=== PATIENT | female | born 1945 | race Caucasian/White ===

== ENCOUNTER 2017-12-22 22:16 | Emergency (ER) | payer MEDICARE, BC ==
[~2017-12-22] VITALS: Ht 162.6 cm; Wt 72.2 kg
[~2017-12-22 22:16] MED LIST: CORE20CA OR; DIGO0.25 PO; OXYC-360 PO; VITA400C58 OR
[2017-12-22 22:35] VITALS: BP 184/82; PULSE 105; RESP 18; TEMP 98.4; O2SAT 97
--- NOTE | 2017-12-22 23:53 | PD ---
HPI Chief Complaint: Cardiac Complaint Time Seen by Provider: 23:51 Travel History International Travel<30 days: No Contact w/Intl Traveler<30days: No Traveled to known affect area: No History of Present Illness HPI The patient is a 72-year-old female that complains of heart palpitations since 10 PM tonight. She does have a history of PAT. The heart palpitations are apparently felt as single beats. She denies any chest pain, shortness of breath , syncopal or near syncopal spells or headache. She did have a sore throat yesterday but this is gone today. She does have occasional right ear pain. PFSH Past Medical History Cardiovascular Problems: Yes Social History Tobacco Use: No Allergies-Medications (Allergen,Severity, Reaction): Coded Allergies: No Known Allergies (Unverified , 12/22/17) Reported Meds & Prescriptions Reported Meds & Active Scripts Active Reported Aspirin 81 Mg Chew 81 Mg CHEW DAILY Ranitidine (Ranitidine HCl) 150 Mg Tab 150 Mg PO BID Carbidopa-Levodopa 25-100 Mg Tab 1 Tab PO Q8HR Atenolol 100 Mg Tab 100 Mg PO DAILY Review of Systems Except as stated in HPI: all other systems reviewed are Neg Physical Exam Narrative GENERAL: Well-nourished, well-developed patient in no apparent distress. Her vital signs show blood pressure 184/82 with heart rate of 105 but otherwise normal. The patient appears slightly anxious. SKIN: Focused skin assessment warm/dry. No skin rash is seen. HEAD: Normocephalic. EYES: No scleral icterus. No injection or drainage. NECK: Supple, trachea midline. No JVD or lymphadenopathy. CARDIOVASCULAR: Regular rate and rhythm without murmurs, gallops, or rubs. RESPIRATORY: Breath sounds equal bilaterally. No accessory muscle use. Lungs clear to auscultation bilaterally GASTROINTESTINAL: Abdomen soft, non-tender, nondistended. MUSCULOSKELETAL: No cyanosis, or edema. BACK: Nontender without obvious deformity. No CVA tenderness. ENT: The tympanic membranes are clear and the throat is clear without erythema, exudate or abscess. Data Data Last Documented VS Vital Signs Date Time Temp Pulse Resp B/P (MAP) Pulse Ox O2 Delivery O2 Flow Rate FiO2 12/23/17 01:58 98.5 95 18 144/87 (106) 98 Room Air Orders Orders Electrocardiogram (12/22/17 23:26) Complete Blood Count With Diff (12/22/17 23:26) Basic Metabolic Panel (Bmp) (12/22/17 23:26) Ckmb (Isoenzyme) Profile (12/22/17:) Troponin I (12/22/17 23:) Ed Discharge Order (12/23/17 02:10) Labs Laboratory Tests Test 12/22/17 23:30 White Blood Count 7.6 TH/MM3 Red Blood Count 5.22 MIL/MM3 Hemoglobin 16.4 GM/DL Hematocrit 46.9 % Mean Corpuscular Volume 89.8 FL Mean Corpuscular Hemoglobin 31.5 PG Mean Corpuscular Hemoglobin Concent 35.1 % Red Cell Distribution Width 13.3 % Platelet Count 276 TH/MM3 Mean Platelet Volume 9.2 FL Neutrophils (%) (Auto) 59.0 % Lymphocytes (%) (Auto) 31.7 % Monocytes (%) (Auto) 8.2 % Eosinophils (%) (Auto) 0.8 % Basophils (%) (Auto) 0.3 % Neutrophils # (Auto) 4.5 TH/MM3 Lymphocytes # (Auto) 2.4 TH/MM3 Monocytes # (Auto) 0.6 TH/MM3 Eosinophils # (Auto) 0.1 TH/MM3 Basophils # (Auto) 0.0 TH/MM3 CBC Comment DIFF FINAL Differential Comment Blood Urea Nitrogen 12 MG/DL Creatinine 0.77 MG/DL Random Glucose 128 MG/DL Calcium Level 9.6 MG/DL Sodium Level 138 MEQ/L Potassium Level 3.0 MEQ/L Chloride Level 103 MEQ/L Carbon Dioxide Level 27.8 MEQ/L Anion Gap 7 MEQ/L Estimat Glomerular Filtration Rate 74 ML/MIN Total Creatine Kinase 80 U/L Troponin I LESS THAN 0.02 NG/ML MDM Medical Decision Making Medical Screen Exam Complete: Yes Emergency Medical Condition: Yes Medical Record Reviewed: Yes Interpretation(s) The EKG is normal except for a sinus tachycardia with a rate of 100 and occasional PVC. The basic metabolic profile shows a GFR of 74 and potassium 3.0 but is otherwise unremarkable. The CBC shows a hemoglobin of 16 and hematocrit of 47. Differential Diagnosis Electrolyte disorder, anxiety, sleep loss, ingestion of cardiac stimulants, acute cardiac syndrome-highly unlikely, dehydration Narrative Course The patient has a slight hypokalemia. She'll be given potassium supplement. It is now 2:00 in the morning and the heart rate is in the upper 80s and no PVCs are seen. The patient may have been dehydrated, I cannot get a history of cardiac stimulants such as tea, decongestants or coffee in excess. The patient will get potassium supplement once daily over a month. She should increase her liquid intake. She has apparent hemoconcentration and this may be dehydration. Diagnosis Primary Impression: PVCs (premature ventricular contractions) Additional Impressions: Hypokalemia Mild dehydration Additional Instructions: As we discussed, increase her liquid intake. Fruit juices, fruits and vegetables and root products such as potatoes have potassium. The potassium pills one pill daily for one month. Med/Other Pt SpecificInfo: Prescription(s) given Scripts Potassium Chloride ER (K-Tab) 10 Meq Tab 10 MEQ PO DAILY for Electrolyte Replacement, #30 TAB 0 Refills Prov: Bird Obregon MD 12/23/17 Disposition: 01 DISCHARGE HOME Condition: Stable Bird Obregon MD Dec 22, 2017 23:53
[2017-12-23 00:35] LABS: AUTOMATED NEUTROPHIL # 4.5 TH/MM3 (1.8-7.7); BASOPHIL % 0.3 % (0.0-2.0); EOSINOPHIL # 0.1 TH/MM3 (0-0.4); EOSINOPHIL % 0.8 % (0.0-4.0); HEMATOCRIT 46.9 % (35.0-46.0); HEMOGLOBIN 16.4 GM/DL (11.6-15.3); LYMPH % 31.7 % (9.0-44.0); LYMPHOCYTE # 2.4 TH/MM3 (1.0-4.8); MEAN CELL VOLUME 89.8 FL (80.0-100.0); MEAN CORPUSCULAR HEMOGLOBIN 31.5 PG (27.0-34.0); MEAN CORPUSCULAR HGB CONC 35.1 % (32.0-36.0); MEAN PLATELET VOLUME 9.2 FL (7.0-11.0); MONO % 8.2 % (0.0-8.0); MONOCYTE # 0.6 TH/MM3 (0-0.9); PLATELET COUNT 276 TH/MM3 (150-450); RED BLOOD COUNT 5.22 MIL/MM3 (4.00-5.30); RED CELL DISTRIBUTION WIDTH 13.3 % (11.6-17.2); WHITE BLOOD COUNT 7.6 TH/MM3 (4.0-11.0)
[2017-12-23 00:45] LABS: CHLORIDE 103 MEQ/L (98-107); SODIUM (NA) 138 MEQ/L (136-145)
[2017-12-23 00:48] LABS: BICARBONATE 27.8 MEQ/L (21.0-32.0); BLOOD UREA NITROGEN 12 MG/DL (7-18); CALCIUM 9.6 MG/DL (8.5-10.1); GLUCOSE,RANDOM 128 MG/DL (74-106)
[2017-12-23 00:51] LABS: CREATININE 0.77 MG/DL (0.50-1.00); GLOMERULAR FILTRATION RATE 74 ML/MIN (>89)
[2017-12-23 00:56] LABS: TROPONIN I LESS THAN 0.02 NG/ML (0.02-0.05)
[2017-12-23 01:58] VITALS: BP 144/87; PULSE 95; RESP 18; TEMP 98.5; O2SAT 98
[2017-12-23] MEDS ORDERED: CARB25TA9 PO (02:00)
[2017-12-23] MEDS ORDERED: ATEN100T PO (02:00)
[2017-12-23] MEDS ORDERED: ASPI-516 CHEW (02:00)
[2017-12-23] MEDS ORDERED: RANI150T PO (02:00)
[2017-12-23] MEDS ORDERED: K-TA10TA PO (02:13)
[2017-12-23] MEDS ORDERED: POTASSIUM CHLORIDE 20 MEQ CONTROLLED RELEASE TAB PO ONE (02:15)
--- NOTE | 2017-12-23 17:04 | EKG ---
Date Performed: 12/22/2017 Time Performed: 22:47:47 PTAGE: 72 years EKG: SINUS TACHYCARDIA WITH OCCASIONAL ECTOPIC PREMATURE COMPLEXES ABNORMAL RHYTHM ECG NO PREVIOUS TRACING DOCTOR: Konstantin Esteves Interpretating Date/Time 12/23/2017 17:03:40
== END 2017-12-23 02:25 | disposition home or self-care (01) ==
LOC: PHED 22:16 → MERGE 22:16 → PHED 12-23 02:25
DX: I49.3 Ventricular premature depolarization (principal); E87.6 Hypokalemia; E86.0 Dehydration; R94.31 Abnormal electrocardiogram [ECG] [EKG]; Z79.82 Long term (current) use of aspirin
CPT/HCPCS: 80048; 82550; 84484; 85025; 93005; 99284